=== PATIENT | female | born 1940 | race Caucasian/White ===

== ENCOUNTER → 2017-11-16 | Outpatient (CLI) | payer MEDICARE ==
[~2017-11-16] MED LIST: ACET-2031 PO; ADV100/50 INH; ALBU8.5H; ALLO-2 PO; BENZ100C26 PO; CALC-515 PO; CELE-1 PO; CODE118S5 PO; CYCL-332 PO; DAR100 PO; DOXY-228 PO; ESOM20CA31 PO; ESTR0.62 PO; FEN145 PO; HYDR15CR4 TP; IBAN150T6 PO; LACT1CAP6 PO; LEVO75TA68 PO; LISI-355 PO; METO-253 PO; METO25TA93 PO; NOR5/325 PO; OMEG300C PO; OMEP-114 PO; OMEP-218 PO; OMEP40CA45 PO; PROAIRPT IH; SOLI10TA8 PO; TOLT4CAP13 PO; WAR5 PO; WARF2.5T4 PO
== END ==
LOC: LAB 16:12
PROVIDERS: ATTEND Surgery
DX: C76.42 Malignant neoplasm of left upper limb (principal)
CPT/HCPCS: 88305

== ENCOUNTER → 2017-12-28 | Outpatient (CLI) | payer MEDICARE | LOC: LAB 16:53 | PROVIDERS: ATTEND Surgery | DX: L90.5 Scar conditions and fibrosis of skin (principal) | CPT/HCPCS: 88305 ==

== ENCOUNTER → 2018-01-28 | Outpatient (CLI) | payer MEDICARE | LOC: LAB 08:05 | PROVIDERS: ATTEND Family Medicine | DX: E03.9 Hypothyroidism, unspecified (principal); I10 Essential (primary) hypertension; N28.9 Disorder of kidney and ureter, unspecified | CPT/HCPCS: 36415; 82040; 82247; 82310; 82374; 82435; 82465; 82565; 82947; 83718; 84075; 84132; 84155; 84295; 84443; 84450; 84460; 84478; 84520 ==

== ENCOUNTER → 2018-04-06 | Outpatient (CLI) | payer MEDICARE | LOC: LAB 13:11 | PROVIDERS: ATTEND Surgery | DX: C44.722 Squamous cell carcinoma of skin of right lower limb, including hip (principal); C79.2 Secondary malignant neoplasm of skin | CPT/HCPCS: 88305 ==

== ENCOUNTER → 2018-07-27 | Outpatient (CLI) | payer MEDICARE ==
--- NOTE | 2018-07-27 11:21 | RADIOLOGY IMAGING REPORT ---
[place] [facility] [place] NAME: Jasmyn Puckett : 1940 MR: [id number] V: [id number] EXAM DATE: ORDERING PHYSICIAN: VELIA LAW TECHNOLOGIST: Location: [facility] Patient: Jasmyn Puckett : 1940 Visit/Account:[id number] Date of Sevice: 07/27/2018 Lumbar spine Indication: Back pain. Comparison: July 14, 2011 FINDINGS: 3 views of the lumbar spine were obtained. There are 5 lumbar type vertebral bodies. No acute osseous abnormality. Unremarkable appearance of L4-L5 posterior fusion hardware. 6 mm retrolisthesis of L2 on L3, increased since prior exam. The vertebral body heights appear well-maintained. Moderate to advanced degenerative disc disease throughout the nonfused lumbar spine, progressed since prior exam. Mild dextra scoliosis Mild/moderate atherosclerosis within the abdominal aorta. IMPRESSION: 1. No acute osseous or acute alignment abnormality of the lumbar spine. 2. Unremarkable appearance of L4-L5 posterior fusion hardware. 3. Grade 1 retrolisthesis of L2 on L3, increased since prior exam. 4. Multilevel moderate to advanced degenerative disc disease, progressed since prior radiographs. Report Dictated By: Adrian Jimenez MD at 07/27/2018 11:15 AM Report E-Signed By: Adrian Jimenez MD at 07/27/2018 11:18 AM WSN:[email or web address]
== END ==
LOC: RAD 10:06
PROVIDERS: ATTEND Nurse Practitioner Family
DX: M54.5 Low back pain (principal); I70.0 Atherosclerosis of aorta; M43.16 Spondylolisthesis, lumbar region
CPT/HCPCS: 72100

== ENCOUNTER → 2018-08-16 | Outpatient (CLI) | payer MEDICARE | LOC: LAB 13:21 | PROVIDERS: ATTEND Surgery | DX: Z02.9 Encounter for administrative examinations, unspecified (principal) ==

== ENCOUNTER → 2018-09-26 | Outpatient (CLI) | payer MEDICARE | LOC: LAB 13:14 | PROVIDERS: ATTEND Surgery | DX: L57.0 Actinic keratosis (principal) | CPT/HCPCS: 88305 ==

== ENCOUNTER 2018-11-10 01:07 | Day surgery (SDC) | payer MEDICARE ==
[2018-11-04 12:12] LABS: PLATELET COUNT, AUTOMATED 236 K/uL (150-450)
--- NOTE | 2018-11-04 12:21 | EKG ---
FACILITY: [facility] [place] PATIENT NAME: FALLON MARTINEZ : [id number] MR: [id number] V: [id number] EXAM DATE: ORDERING PHYSICIAN: BELEM RED TECHNOLOGIST: THANIA Test Reason : PRE OP Blood Pressure : / mmHG Vent. Rate : 059 BPM Atrial Rate : 059 BPM P-R Int : 184 ms QRS Dur : 080 ms QT Int : 438 ms P-R-T Axes : 071 051 033 degrees QTc Int : 433 ms Sinus bradycardia with premature atrial complexes Septal infarct , age undetermined Abnormal ECG No previous ECGs available Confirmed by ANA PAULA MARTI ([id number]) on 11/05/2018 6:36:42 AM Referred By: NEDA Confirmed By:ANA PAULA MARTI
[~2018-11-10] VITALS: Ht 152.4 cm; Wt 64.0 kg
[~2018-11-10 01:07] MED LIST changes: +ESOM20CA7 PO; +HYOS0.128 PO; +OXYB10TA21 PO
[2018-11-10] MEDS ORDERED: NORMOSOL R SOLN(*) 1000 ML BAG 1,000 ML IV PRN (12:30)
[2018-11-10] MEDS ORDERED: LIDOCAINE/SOD BICARB 8.4% SYR ID ONE (12:30)
[2018-11-10 13:01] VITALS: BP 156/70
[2018-11-10] MEDS ORDERED: ROPIVACAINE 0.5% 20 ML VIAL ONE (13:13)
[2018-11-10 13:33] LABS: INR 1.05
[2018-11-10] MEDS ORDERED: MIDAZOLAM 2 MG/2 ML VIAL ONE (14:02)
[2018-11-10] MEDS ORDERED: LIDOCAINE MPF 1% 5 ML VIAL ONE (14:02)
[2018-11-10] MEDS ORDERED: PROPOFOL EMUL(*) 10MG/ML 20 ML 20 ML ONE (14:02)
[2018-11-10] MEDS ORDERED: fentaNYL CITR 100 MCG/2 ML AMP ONE ×2 (14:03→16:16)
[2018-11-10] MEDS ORDERED: KETAMINE HCL 200 MG/20 ML MDV ONE (14:20)
[2018-11-10] MEDS ORDERED: DEXAMETHASONE SOD 4 MG/ML VIAL ONE (14:57)
[2018-11-10] MEDS ORDERED: ONDANSETRON 4 MG/2 ML VIAL ONE (14:57)
[2018-11-10] MEDS ORDERED: BACITRACIN OINT 15 GM TUBE TP ONE (15:16)
[2018-11-10] MEDS ORDERED: NS 0.9% IRRIGATION 1000ML PLCT IR ONE (15:20)
[2018-11-10] MEDS ORDERED: TRAM-420 PO (16:18)
--- NOTE | 2018-11-10 16:19 | Short(Outpt) Discharge Summary ---
Discharge Summary Reason for Hosp/Final Diag: (1) Skin lesion of face Status: Chronic Hospital Course & Plan: Skin lesion removed from upper lip. (2) History of skin cancer Status: Chronic Departure Discharge to: Home, Self Care Discharge Instructions Home Meds Active Scripts Tramadol Hcl (TRAMADOL HCL) 50 Mg Tablet, 1 TAB PO Q4-6H PRN for PAIN, #20 TAB 0 Refills Prov:BELEM RED MD 11/10/18 Reported Medications Hyoscyamine Sulfate (HYOSCYAMINE SULFATE) 0.125 Mg Tab.rapdis, 0.125 MG PO DAILY PRN for DIARRHEA 10/28/18 Oxybutynin Chloride (DITROPAN XL) 10 Mg Tab.er.24, 10 MG PO QDAY, TAB 10/19/18 Esomeprazole Magnesium (Esomeprazole Magnesium) 20 Mg Capsule.dr, 20 MG PO QDAY 10/19/18 Calcium Carbonate (TUMS) 200 Mg Tab.chew, 200 MG PO PRN, TAB.CHEW 02/15/14 Metoprolol Tartrate (METOPROLOL TARTRATE) 50 Mg Tab, 1 TAB PO QDAY, TAB 02/15/14 Acetaminophen (ACETAMINOPHEN) 325 Mg Tablet, 325 MG PO PRN, TAB 02/15/14 Allopurinol (Allopurinol) 300 Mg Tablet, 300 MG PO QDAY 02/15/14 Warfarin Sod (Coumadin (Or Equiv)) 5 Mg Tab, 5 MG PO SUN,TUE,WED,WED,SAT, 0 Refills 03/27/09 Levothyroxine Sodium (Levothyroxine Sodium) 75 Mcg Tablet, 75 MCG PO DAILY, 0 Refills 03/27/09 Lisinopril/Hydrochlorothiazide (Lisinopril-Hctz 20/25 Tab) 1 Each Tablet, 1 EACH PO DAILY, 0 Refills 03/27/09 Follow up Referrals: General Surgery - 11/18/18 @ Surgery, General with BELEM RED MD You have a follow up appointment scheduled with Dr. Red on 11/18/18, at 11:00am. Diet: Regular Activity: As Tolerated Special Instructions: Apply antibiotic ointment of your choice to your upper lip twice each day and after bathing. BELEM RED MD Nov 10, 2018 16:19
--- NOTE | 2018-11-10 16:24 | Post Operative Progress Note ---
Post Operative Progress Note Date: Nov 10, 2018 Time: 16:20 Surgeon: Leeann Dictation number: [id number] Anesthesia: LMA by Dr. Gan Pre-Op Diagnosis: Skin lesion on upper lip H/O skin cancer Post-Op Diagnosis: SANTOS Findings: All margins negative for cancer on frozen section Procedure(s): Excision of suspicious skin lesion from upper lip Specimen Removed:(May be N/A): Upper lip skin lesion Right margin Left margin Deep margin Complications: None Fluids: See anesthesia record Estimated Blood Loss: Minimal Date OP Note Dictated: Nov 10, 2018 Time OP Note Dictated: 16:21 BELEM RED MD Nov 10, 2018 16:24
[2018-11-10 16:45] VITALS: BP 141/63
[2018-11-10 17:00] VITALS: BP 143/61
[2018-11-10] MEDS ORDERED: traMADol 50 MG TAB ONE (17:19)
[2018-11-10 17:25] VITALS: BP 148/67
[2018-11-10 17:27] VITALS: BP 162/65
--- NOTE | 2018-11-10 17:45 | NUR ---
1645 PT TRANSFERRED TO LA CHARTING WHILE PHYSICALLY IN PACU, VSS PAIN 'BETTER' BUT NOT QUANTIFIED 1700 VSS, PAIN 7/10, MEDICATED, , MARILOU, BROUGHT TO BEDSIDE 1715 PT TOLERATING JELLO 1725 PT NEEDS TO LAURA RESTROOM, ORTHOSTATICS DONE, STABLE, BUT PT REPORTS DIZZINESS, HELPED TO BATHROOM BY AND Nerissa JONES RN. PT VOIDED WITHOUT DIFFICULTY 1735 PLACED BACK ON O2 SENSOR WHILE IN BED, DROPS TO 80S FREQUENTLY, DISCUSSED O2 USE AT HOME, PT UNDERSTANDS NEED TO USE CONTINUOUSLY NOT JUST AT NIGHT 1745 SBAR TO Krishan FIGUEROA RN
--- NOTE | 2018-11-10 17:53 | NUR ---
1747 PATIENT WAS MOVED TO 2 LITERS O2. 1752 PATIENT WAS GIVEN GIVEN TRAMADOL FOR 6/10 PAIN
--- NOTE | 2018-11-10 17:53 | NUR ---
1753 DISCUSSED THE IMPORTANCE OF COUGHING AND DEEP BREATHING WITH PATIENT. SHE VERBALIZED UNDERSTANDING.
--- NOTE | 2018-11-10 18:55 | NUR ---
1819 PATIENT WAS MOVED TO ROOM AIR. 1829 FINISHED DC INSTRUCTIONS WITH PATIENT AND . THEY VERBALIZED UNDERSTANDING 1834 PATIENT USED THE RESTROOM 1839 PATIENT BEGAN GETTING DRESSED 1849 IV WAS DC'D WITH CATH INTACT 1854 PATIENTS O2 DROPS OCC TO 83% ON ROOM AIR. SHE IS COUGHING AND DEEP BREATHING AND O2 RISES TO 94% QUICKLY. SHE HAS BEEN ABLE TO MAINTAIN O2 ABOVE 90%. SHE STATES SHE WEARS 2 LITERS HOME O2 AND SHE IS GOING TO GO HOME AND PUT OXYGEN ON RIGHT AWAY. LUNGS ARE CLEAR. SHE STATES HER PAIN IS 4/10. INCISION REMAINS DRY AND INTACT. SHE WAS TAKEN OUT VIA WHEELCHAIR AND WAS OCC. BY HER AND Krishan FIGUEROA.
--- NOTE | 2018-11-10 18:55 | NUR ---
1800 CARDIOPULMONARY IN TO TEACH PATIENT ABOUT USING AEROBIKA. SHE DEMONSTRATED UNDERSTANDING. 1809 MOVED TO 0.5 LITERS NASAL CANNULA
--- NOTE | 2018-11-11 01:57 | OPERATIVE REPORT 1 ---
EVENT DATE: November 10, 2018 SURGEON: Tyson Bradshaw MD ANESTHESIOLOGIST: Bandar Malik MD ANESTHESIA: LMA. PREOPERATIVE DIAGNOSES 1. History of skin cancer. 2. Suspicious skin lesion on upper lip. POSTOPERATIVE DIAGNOSES 1. History of skin cancer. 2. Suspicious skin lesion on upper lip. PROCEDURE PERFORMED Excision of suspicious skin lesion from upper lip. COMPLICATIONS None. CONDITION Stable. ESTIMATED BLOOD LOSS Minimal. SPECIMENS 1. Upper lip skin lesion. 2. Right margin. 3. Left margin. 4. Deep margin. The margins were all sent for frozen section and were found to be negative. INDICATIONS This 78-year-old female has extensive history of skin cancer, and I have removed multiple skin cancers from her in my office. She presents with a suspicious skin lesion on her upper lip that is quite sizable, and she is requesting to have it removed. I consented her for excision of this in the operating room due to the size and the location of it, for her comfort. DESCRIPTION OF PROCEDURE The patient was brought to the operating room and placed supine on the operating table. LMA anesthesia was administered, and her lower face was prepped and draped in a sterile fashion. A time-out was completed, and I made a vertical incision to encompass the skin lesion, which started approximately 0.5 cm above her vermilion border and then continued down for a couple of millimeters below her vermilion border. The ellipse was 1 cm long by about 8 mm wide. I dissected through the dermis and subcutaneous fat, undermining the ellipse, and then passed the specimen off the field. I then obtained a sliver of right margin, left margin, and deep margins, and these were sent separately for frozen sections. Pathologist called us and said that he did not see any cancer in the margins. I made the wound hemostatic with pressure and closed the wound with interrupted 5-0 Prolene sutures. Her skin was cleaned and dried and Bacitracin was applied to the incision. Patient was then awakened, LMA removed, and she was transported to the recovery room in stable condition, having tolerated the procedure without any apparent problems. MIKI
== END 2018-11-10 16:45 | disposition home or self-care (01) ==
LOC: OR 01:07
PROVIDERS: ATTEND Surgery
DX: C44.01 Basal cell carcinoma of skin of lip (principal); Z85.828 Personal history of other malignant neoplasm of skin; L98.8 Other specified disorders of the skin and subcutaneous tissue; R00.1 Bradycardia, unspecified; I10 Essential (primary) hypertension; Z86.711 Personal history of pulmonary embolism; Z79.01 Long term (current) use of anticoagulants; E03.9 Hypothyroidism, unspecified
CPT/HCPCS: 36415; 40530; 85025; 85610; 88305; 88331; 88332; 94667; A9270; J1100; J2001; J2405; J2704; J2795; J3010; J3490; 82310; 82374; 82435; 82565; 82947; 84132; 84295; 84520; J2250

== ENCOUNTER → 2018-12-12 | Outpatient (CLI) | payer MEDICARE ==
[~2018-12-12] MED LIST changes: +TRAM-420 PO
--- NOTE | 2018-12-12 12:59 | RADIOLOGY IMAGING REPORT ---
[place] [facility] [place]: Jasmyn Puckett : 1940 MR: [id number] V: [id number] EXAM DATE: ORDERING PHYSICIAN: EVLIA LAW TECHN[place] [facility] [place] : 1940 Visit/Account:[id number] Date of Sevice: 12/12/2018 Technique: PELVIS, SACRUM & COCCYX HISTORY: Fall Comparison studies: None FINDINGS: Decreased cortical mineralization is present with osteopenia. There is no acute fracture. Posterior spinal fusion hardware is noted within the lower lumbar spine. Degenerative changes are n oted within the SI joints and femoroacetabular joints. Degenerative and/or posttraumatic changes ove rlie the pubic symphysis extending into the left superior pubic ramus. No erosive process. IMPRESSION: 1. No acute osseous process. Please note the patient is diffusely osteopenic limiting the sensitivi ty of a nondisplaced fracture. 2. Degenerative findings as above. Report Dictated By: Ethan Guerra DO at 12/12/2018 12:53 PM Report E-Signed By: Ethan Guerra DO at 12/12/2018 12:55 PM WSN:[email or web address]
--- NOTE | 2018-12-12 12:59 | RADIOLOGY IMAGING REPORT ---
FACILITY: [facility] PATIENT NAME: Jasmyn Puckett : 1940 MR: [id number] V: [id number] EXAM DATE: ORDERING PHYSICIAN: VELIA LAW TECHNOLOGIST: Location: [facility] [place] Patient: Jasmyn Puckett : 1940 Visit/Account:[id number] Date of Sevice: 12/12/2018 Technique: PELVIS, SACRUM & COCCYX HISTORY: Fall Comparison studies: None FINDINGS: Decreased cortical mineralization is present with osteopenia. There is no acute fracture. Posterior spinal fusion hardware is noted within the lower lumbar spine. Degenerative changes are n oted within the SI joints and femoroacetabular joints. Degenerative and/or posttraumatic changes ove rlie the pubic symphysis extending into the left superior pubic ramus. No erosive process. IMPRESSION: 1. No acute osseous process. Please note the patient is diffusely osteopenic limiting the sensitivi ty of a nondisplaced fracture. 2. Degenerative findings as above. Report Dictated By: Ethan Guerra DO at 12/12/2018 12:53 PM Report E-Signed By: Ethan Guerra DO at 12/12/2018 12:55 PM WSN:[email or web address]
== END ==
LOC: RAD 12:03
PROVIDERS: ATTEND Nurse Practitioner Family
DX: M85.88 Other specified disorders of bone density and structure, other site (principal)
CPT/HCPCS: 72170; 72220

== ENCOUNTER → 2019-01-18 | Outpatient (CLI) | payer MEDICARE ==
[~2019-01-18] MED LIST changes: +RANI150C17 PO
--- NOTE | 2019-01-18 11:23 | RADIOLOGY IMAGING REPORT ---
FACILITY: [facility] - [place] PATIENT NAME: Jasmyn Puckett : 1940 MR: [id number] V: [id number] EXAM DATE: ORDERING PHYSICIAN: CHADWICK LYNCH TECHNOLOGIST: Location: [facility] [place] Patient: Jasmyn Puckett : 1940 Visit/Account:[id number] Date of Sevice: 01/18/2019 DEXA Scan Clinical history: Osteoporosis, preop planning. Comparison: DEXA scan from 05/16/2009. And 05/27/2006 HIP: Bone mineral density (BMD) measured in the Left total hip region correlates with a Z-score -0.8 and a T-score of -2.8 which is osteoporosis as defined by the World Health Organization. The correspondin g risk of fracture in the hip is 6-8 times increased compared with a young adult reference population . This total hip value has decrease by 2.5 % since the prior study. More than 5% change is considere d significant. T score left femoral neck -2.3 Bone mineral density (BMD) measured in the Femoral Neck region measures 0.720 g/cm2. FOREARM: The bone mineral density (BMD) measured in the ULTRADISTAL Left forearm, where trabecular bone predom inates, correlates with a Z-score 4.9 and a T-score of 2.2 which is as defined by the World Health Or ganization. The corresponding risk of fracture in the distal forearm is not increased compared with a young adult reference population. The left forearm has not been previously scanned The bone mineral density (BMD) in the MIDSHAFT of the forearm, where cortical bone predominates, chuyita elates with a Z-score -0.4 and a T-score of -3.1 which is osteoporosis as defined by the World Health Organization. The corresponding risk of fracture in the midshaft of the forearm is 8-12 times increa sed compared with a young adult reference population. LUMBAR SPINE: The bone mineral density (BMD) measured from L1-L3 correlates with a Z-score of 3.1 and a T-score of 1.2 which is Normal as defined by the World Health Organization. The corresponding risk of fracture in the lumbar spine is Not increased compared with a young adult reference population. This value bella s increase by 10.3 % since the prior study. More than 5% change is considered significant. IMPRESSION: 1. Left Hip: Osteoporosis. There has been 2.5% decrease in the total hip bone mineral density since the previous exam. 2. Femoral Neck: Bone Mineral Density is 0.720 g/cm2 3. Left Forearm: Osteoporosis. The left forearm has not been previously scanned. Lumbar spine: Normal. There has been a 10.3% increase in the lumbar spine bone mineral density since the previous exam The next DEXA scan of this patient should include the following sites: L1-L4 and the left forearm. FRAX? WHO Fracture Risk Assessment Tool link: <http://www.shef.ac.uk/FRAX/tool.jsp?locationValue=9> PLEASE NOTE: 1) The World Health Organization defines low BMD as follows: T-score Normal > -1 Osteopenia < -1 and > -2.5 Osteoporosis < -2.5 without fractures Established osteoporosis < -2.5 with fractures 2) In general, you may wish to consider: Diagnosis Treatment Follow-up DEXA Normal BMD Prevention 2-3 years Osteopenia Prevention/therapy 1-2 years Osteoporosis Therapy Yearly 3) Fracture risk estimated from the T-score is more accurate for vertebral fractures (often spontane ous) than for hip fractures. Report Dictated By: Susanna Lieberman MD at 01/18/2019 11:09 AM Report E-Signed By: Susanna Lieberman MD at 01/18/2019 11:17 AM WSN:[email or web address]
== END ==
LOC: RAD 01:31
PROVIDERS: ATTEND Orthopaedic Surgery Orthopaedic Surgery of the Spine
DX: Z13.820 Encounter for screening for osteoporosis (principal); Z78.0 Asymptomatic menopausal state; M41.56 Other secondary scoliosis, lumbar region; M47.27 Other spondylosis with radiculopathy, lumbosacral region; M85.89 Other specified disorders of bone density and structure, multiple sites
CPT/HCPCS: 77080

== ENCOUNTER → 2019-01-25 | Outpatient (CLI) | payer MEDICARE ==
[2019-01-25 09:12] LABS: INR 1.09
== END ==
LOC: LAB 08:44
PROVIDERS: ATTEND Pain Medicine Pain Medicine
DX: D68.8 Other specified coagulation defects (principal)
CPT/HCPCS: 36415; 85610

== ENCOUNTER → 2019-03-06 | Outpatient (CLI) | payer MEDICARE | LOC: LAB 08:47 | PROVIDERS: ATTEND Family Medicine | DX: E03.9 Hypothyroidism, unspecified (principal); E11.9 Type 2 diabetes mellitus without complications; E78.5 Hyperlipidemia, unspecified; I26.99 Other pulmonary embolism without acute cor pulmonale | CPT/HCPCS: 36415; 82040; 82247; 82310; 82374; 82435; 82565; 82947; 83036; 84075; 84132; 84155; 84295; 84443; 84450; 84460; 84520 ==

== ENCOUNTER → 2019-03-13 | Outpatient (CLI) | payer MEDICARE ==
[2019-03-13 09:13] LABS: INR 1.36
== END ==
LOC: LAB 08:21
PROVIDERS: ATTEND Pain Medicine Pain Medicine
DX: D68.8 Other specified coagulation defects (principal)
CPT/HCPCS: 36415; 85610